=== PATIENT | male | born 1965 | race Caucasian/White ===

== ENCOUNTER → 2016-10-01 | Outpatient (CLI) | payer BC, OTHER ==
[~2016-10-01] MED LIST: ALEVE220 MG PO; BENADRYL25 MG PO; BENZONATATE100 MG PO; CLARITIN10 MG PO; COLACE100 MG PO; COUMADIN 5 MG TA5 M1 PO; DELSYM COU30 MG/5 ML PO; ENOXAPARIN150 MG/11 SUBQ; FLEXERIL PO; IRON325 PO; LOPERAMIDE 2 MG2 M1 PO; NORCO 5-325 TA1 EACH PO; ONDANSETRON HCL4 M2 PO; PYRIDOXINE HCL100 MG; SYMBICORT160 MCG/4. INH; TESSALON PERLE100 MG PO; TRAZODONE HCL50 MG PO; VANCOMYCIN100 MG/ML PO; VENTOLIN HFA 1818 GM INH
== END ==
LOC: SPEC 10:15
DX: Z45.2 Encounter for adjustment and management of vascular access device (principal); J45.909 Unspecified asthma, uncomplicated; Z85.038 Personal history of other malignant neoplasm of large intestine; Z93.3 Colostomy status; Z85.118 Personal history of other malignant neoplasm of bronchus and lung

== ENCOUNTER 2017-02-05 16:48 | Inpatient (IN) | payer BC, OTHER ==
[~2017-02-05] VITALS: Ht 185.4 cm; Wt 130.5 kg
--- NOTE | ~2017-02-05 | HC ---
[facility] [place] [address] CONSULTATION Name: BENJAMINCHAYO ARIAN Room #: 443-P [facility] IN M.R.#: [id number] Admission: 02/05/17 Attend Phys: Surinder Kruger MD Discharge: 02/06/17 Date of : 63 Report #: [id number] THIS REPORT FOR: //name// CC: [place] Reid Surinder Kruger DATE OF SERVICE: 02/06/2017 REQUESTING PHYSICIAN: Surinder Kruger M.D. REASON FOR CONSULTATION: Right knee pain. HISTORY OF PRESENT ILLNESS: The patient is a 51-year-old male who was recently diagnosed with metastatic colon cancer and underwent a colectomy in 03/2016. He has also had surgery for brain metastases, and he states that this left him with some residual weakness as a consequence of the procedure. He says that several weeks ago, he was going up the stairs and his legs gave way and he fell on to his right knee and he has been having some difficulty with that since. Overall, he has been managing, and he has been in a rehab hospital and was discharged on 01/27 to home, and although he had pain in the knee, he was tolerating it, and then 2 days ago, he had an acute increase in his pain as well as worsening of his giving way sensation, feeling like his quadriceps and knee were not adequately sustaining him. He complains of pain in the quad muscle as well as in the lateral aspect of the knee. He reports some subjective swelling. He has no fevers or chills or evidence of a septic joint. PAST MEDICAL HISTORY: Metastatic colon cancer, status post recent intracranial surgery for brain metastases; lower extremity weakness; history of chemotherapy and asthma. PAST SURGICAL HISTORY: Cranial surgery recently secondary to metastatic colon cancer and colon resection with colostomy 03/2016. CURRENT INPATIENT MEDICATIONS: Dexamethasone, albuterol, insulin, oxycodone and p.r.n. morphine. ALLERGIES: ALCOHOL. SOCIAL HISTORY: The patient denies tobacco, alcohol or drug abuse. He lives with his . FAMILY HISTORY: Noncontributory. REVIEW OF SYSTEMS: Positive for neurologic complaints including weakness in the lower extremities following his intracranial surgery recently. He has had extended hospitalizations recently secondary to weakness and treatment for his [facility] [address] [place] [address] CONSULTATION Name: CHAYO BENJAMIN MOORELAND Room #: 3[facility].#: [id number] Admission: 02/05/17 Attend Phys: Surinder Kruger MD Discharge: 02/06/17 Date of : 63 Report #: [id number] colon cancer. He complains of right knee pain as well as thigh pain on the right side and left leg weakness. No fever, chills or malaise. No nausea, vomiting or diarrhea. No chest pain or acute shortness of breath. No acute symptoms. PHYSICAL EXAMINATION: VITAL SIGNS: T-max is 36.8, blood pressure 135/80, pulse is 102, respiratory rate 20 and pulse ox 95%. Current temperature is 36.5. GENERAL: He is alert and oriented, no acute distress, overweight, but otherwise a healthy-appearing gentleman, supine in hospital bed. EXTREMITIES: Left lower extremity reveals no bony tenderness or crepitus. There is no swelling. He is grossly neurovascularly intact, although he reports subjective increased weakness in the left lower extremity. He has some mild tenderness to palpation of the quadriceps muscles. Right lower extremity: There is a 1+ effusion in the knee. He has medial and lateral joint line tenderness. The knee is stable to varus and valgus stress, and the Timothy test is negative. He has near full extension of the knee and flexion to at least 110 degrees without irritability. There is no evidence of septic joint. He has subjective motor and sensory function intact with also subjective general weakness. There is muscle tenderness, worse in the quadriceps, but also present in the hamstrings to deep palpation. No evidence of bruising or hematoma present. LABORATORY DATA: His white blood cell count is 10.5, down from 12.7 yesterday. Hematocrit 32.8. Creatinine is 0.5. IMAGING: X-rays, 3 views of the right knee demonstrate mild degenerative changes with mild osteophyte formation. Overall joint space is pretty well maintained. IMPRESSION: A 51-year-old male with metastatic colon cancer, status post intracranial surgery with some residual bilateral lower extremity weakness, who reports exacerbation of his right leg/knee pain and giving way. PLAN: I agree with the MRI knee to rule out an intra-articular structural issue. I do not think there is anything major structurally wrong with the knee based on the exam. I suspect this is more of a neuromuscular issue. I agree with the order for T/L spine MRI as well with history of metastatic cancer. We may consider knee bracing if that might help provide some additional support. I will review the knee MRI images once that study is complete. I discussed this plan with him and answered his questions. [address] [address] CONSULTATION Name: CHAYO BENJAMIN ARIAN Room #: 443-P DIS IN M.R.#: [id number] Admission: 02/05/17 Attend Phys: Surinder Kruger MD Discharge: 02/06/17 Date of : 63 Report #: [id number] Thank you for the consultation. <ELECTRONICALLY SIGNED> By: Davion Conti MD 02/07/17 [id number] Davion Conti MD /nt
--- NOTE | ~2017-02-05 | H ---
[facility] [place] [address] HISTORY AND PHYSICAL Name: CHAYO BENJAMIN ARIAN Room #: 443-P ADM IN M.R.#: [id number] Admission: 02/05/17 Attend Phys: Suridner Kruger MD Discharge: Date of : 63 Report #: [id number] THIS REPORT FOR: //name// CC: [place] Franklin Kruger DATE OF SERVICE: 02/05/2017 CHIEF COMPLAINT: Right knee pain and leg weakness. HISTORY OF PRESENT ILLNESS: The patient is a 51-year-old male with history of metastatic colon cancer diagnosed in February of last year, recently diagnosed with metastatic disease of his brain, presented to the emergency room complaining of leg weakness and also right knee pain. Apparently on 12/10/2016, his knee gave out and he fell. He might have twisted his knee at that point. In early January, he was diagnosed with metastatic disease of his brain and has received radiation therapy, and he was also diagnosed with leg weakness and he has been receiving rehab until 01/27/2017. The patient was in the rehab facility from early January to January 27. The patient is presently at home and has been walking with help of a walker. He presented to the emergency room because of leg weakness and also right knee pain. The patient denies any visual disturbance. No nausea, vomiting. No headache. He also had surgery for a metastatic lesion in his brain at [facility]. The patient has been recommended to have another MRI of the brain in February. He is presently on chemotherapy. His last chemotherapy was today. PAST MEDICAL HISTORY: Significant for metastatic colon cancer. He had colon resection with colostomy in March 2016. He fell at home in March 2016, with hematoma to the left hip. He has had PE in the past. He was on Lovenox until he was diagnosed with metastatic disease in his brain, history of asthma, history of heartburn, seasonal allergies. HOME MEDICATIONS: Reviewed, please look at the nursing documentation. He is presently on a tapering dose of Decadron, he is on 2 mg of Decadron once a day. ALLERGIES: ALCOHOL, when he drinks. SOCIAL HISTORY: No smoking, alcohol abuse, or illicit drug abuse. FAMILY HISTORY: History of hypertension. REVIEW OF SYSTEMS: CONSTITUTIONAL: No history of any weight loss, weight gain, or fever. EYES: No change in vision. THROAT: Denies any sore throat. [address] [address] HISTORY AND PHYSICAL Name: CHAYO BENJAMIN ARIAN Room #: 443-P ADM IN M.R.#: [id number] Admission: 02/05/17 Attend Phys: Surinder Kruger MD Discharge: Date of : 63 Report #: [id number] CARDIOVASCULAR: No chest pain, dizziness, palpitations. RESPIRATORY: No cough or expectoration. GASTROINTESTINAL: No nausea or vomiting. GENITOURINARY: No dysuria, hematuria. NEUROLOGIC: Leg weakness. No weakness in the upper extremity. He has occasional shaking and tremors in his left hand. The 12-point review of system is negative other than the positive and negative dictated in the history of present illness and the review of systems. PHYSICAL EXAMINATION: VITAL SIGNS: Blood pressure is 138/81, heart rate of 98 per minute, afebrile. GENERAL: The patient is awake and alert, not in acute respiratory distress. He is obese. HEENT: Pupils are equal, reactive to light. There is a surgical scar over the right parietal area. No facial asymmetry noted. Throat appears normal. NECK: Supple, no JVD, no bruit, no lymphadenopathy. CARDIOVASCULAR SYSTEM: S1, S2, negative S3, no murmur. CHEST: Bilateral air entry present. Clear on auscultation. ABDOMEN: Soft, bowel sounds present, no mass, no organomegaly, no tenderness. PERIPHERY: He has 1-2+ pedal edema. Dorsalis pedis is 1+. NEUROLOGICAL: Power is 5/5 in upper extremity. Power is 4/5 in the lower extremity. On the right knee, he has tenderness. He has difficulty flexing his right knee because of the pain. There is no obvious swelling noted. No erythema. LABORATORY DATA: Reviewed. His white count is 12.7, hemoglobin 11.4, platelet is 264. His chemistry showed sodium of 127. BUN and creatinine are 13 and 0.5. AST and ALT are 41 and 62, albumin is 2.3. IMAGING STUDIES: X-ray of the knee showed no acute fractures. There are minor degenerative changes. ASSESSMENT AND PLAN: 1. Right knee pain, rule out any meniscal tear. We will obtain an MRI of the right knee. Orthopedic surgeon will be consulted. 2. We will also obtain Dopplers of the lower extremity to rule out any deep vein thrombosis. The patient may be placed on sequential compression devices on the legs if the Doppler study is negative. We will also continue with pain control with oxycodone and IV morphine. 3. Leg weakness. The patient states he has leg weakness for the past 3 weeks. Apparently, he was in rehab and was able to ambulate with a walker. Presently, his weakness has worsened. We will consult his oncologist. We will consider repeating an MRI of the brain and even an MRI of the spine. 4. History of colon cancer, metastatic. According to the patient, he has had 9 metastatic lesions in his brain. The patient will be continued on his p.o. Decadron. [facility] [address] [place] [address] HISTORY AND PHYSICAL Name: CHAYO BENJAMINIOTT Room #: 443-P ADM IN .R.#: [id number] Admission: 02/05/17 Attend Phys: Surinder Kruger MD Discharge: Date of : 63 Report #: [id number] 5. History of asthma. Treatment plan has been explained to the patient and the patient's at bedside in detail. <ELECTRONICALLY SIGNED> By: Surinder Kruger MD 02/06/17 [id number] Surinder Kruger MD /nt
[~2017-02-05 16:48] MED LIST changes: +ATIVAN1 MG PO; +BREO ELLIPTA 11 EACH IH; +DEXAMETHASONE 44 M1 PO; +HYDROCODONE-APA1 TA1 PO; +PROBIOTIC1 EAC1; +SINGULAIR 10 MG10 M1 PO
[2017-02-05 16:49] VITALS: BP 138/81
[2017-02-05 18:24] LABS: HEMATOCRIT 34.1 % (42.0-52.0); HEMOGLOBIN 11.4 gm/dL (14.0-18.0); MCH 27.9 pg (26.0-34.0); MCHC 33.3 g/dL (28.0-37.0); MCV 83.8 fL (80.0-100.0); PLATELET COUNT 264 thou/uL (150-400); RBC 4.07 mil/uL (4.50-6.00); RDW 16.4 % (10.5-14.5); WBC 12.7 thou/uL (4.0-11.0)
[2017-02-05 18:25] LABS: MANUAL DIFF YES
[2017-02-05 18:34] LABS: CALCIUM 9.1 mg/dL (8.5-10.1); CREATININE 0.5 mg/dL (0.7-1.3); POTASSIUM 4.5 mmol/L (3.5-5.1)
[2017-02-05 18:38] LABS: ALBUMIN 2.3 g/dL (3.4-5.0); TOTAL BILIRUBIN 0.5 mg/dL (<0.1-1.0); TOTAL PROTEIN 6.3 g/dL (6.4-8.2)
[2017-02-05 18:52] LABS: ABSOLUTE NEUTROPHILS 11.2 thou/uL (1.4-8.2); TOTAL CELL COUNT 100
[2017-02-05 18:53] LABS: ANISOCYTOSIS 1+
[2017-02-05 20:35] VITALS: BP 131/68
[2017-02-05 20:45] VITALS: BP 133/90
[2017-02-06 03:30] LABS: HEMATOCRIT 32.8 % (42.0-52.0); HEMOGLOBIN 11.2 gm/dL (14.0-18.0); MCH 28.5 pg (26.0-34.0); MCV 83.8 fL (80.0-100.0); PLATELET COUNT 238 thou/uL (150-400); RBC 3.92 mil/uL (4.50-6.00); RDW 16.1 % (10.5-14.5); WBC 10.5 thou/uL (4.0-11.0)
[2017-02-06 03:34] LABS: MANUAL DIFF YES
[2017-02-06 03:37] LABS: CALCIUM 8.8 mg/dL (8.5-10.1); CREATININE 0.5 mg/dL (0.7-1.3); MAGNESIUM 1.8 mg/dL (1.8-2.4)
[2017-02-06 04:30] LABS: ABSOLUTE NEUTROPHILS 9.6 thou/uL (1.4-8.2); ANISOCYTOSIS 1+; TOTAL CELL COUNT 100
[2017-02-06 05:41] VITALS: BP 125/82
[2017-02-06 08:18] VITALS: BP 135/80
[2017-02-06 16:13] VITALS: BP 128/86
[2017-02-06 17:19] VITALS: BP 128/80
[2017-02-06] MEDS ORDERED: DUONEB 2.5-0.5 M3 ML INH (18:26)
[2017-02-06] MEDS ORDERED: DEXAMETHASONE 44 M1 PO (18:26)
[2017-02-06 20:40] VITALS: BP 131/86
== END 2017-02-06 22:02 | disposition short-term general hospital (02) | DRG 554 ==
LOC: ER 16:48 → 4S 20:33
PROVIDERS: Internal Medicine; Physician Assistant
DX: M87.88 Other osteonecrosis, other site (principal); C78.00 Secondary malignant neoplasm of unspecified lung; C79.31 Secondary malignant neoplasm of brain; R53.1 Weakness; J45.909 Unspecified asthma, uncomplicated; R09.02 Hypoxemia; M48.8X5 Other specified spondylopathies, thoracolumbar region; Z86.711 Personal history of pulmonary embolism; Z79.01 Long term (current) use of anticoagulants; Z79.899 Other long term (current) drug therapy; Z93.3 Colostomy status; Z91.048 Other nonmedicinal substance allergy status; Z99.81 Dependence on supplemental oxygen; Z85.038 Personal history of other malignant neoplasm of large intestine; Z82.49 Family history of ischemic heart disease and other diseases of the circulatory system
CPT/HCPCS: 10102